=== PATIENT | female | born 1970 | race Caucasian/White ===

== ENCOUNTER 2016-08-19 17:37 | Emergency (ER) | payer OTHER ==
--- NOTE | 2016-08-19 18:46 | ED CLINICAL REPORT ---
Clinical Report - Physicians/Mid Levels [facility] [address] [place] [address] 08/19/2016 17:39 Patient: SOLANGE JUNIOR Arrived- By private vehicle. Historian- patient. HISTORY OF PRESENT ILLNESS Chief Complaint: PELVIC PAIN. Still present. The symptoms are described as mild. No vaginal pain, low back pain, vaginal discharge, vaginal itching or pain with urination. No urinary frequency. (Patient reports IUD inserted in September 2015, since then she has had some discharge, mild vaginal bleeding and cramping off and on. She was seen recently by her NATURAL RESOURCES INSTRUCTOR physician, as well as urgent care clinic, was referred to here for ultrasound. Patient reports pain worsening over the last 2-3 days. NO urgency/ freq/ dysuria.). REVIEW OF SYSTEMS No vomiting, diarrhea, headache, fever or cough. No difficulty breathing. All systems otherwise negative, except as recorded above. PAST HISTORY Problems: Lupus. Asthma. Additional Surgeries: Ablation. . Medications: Hydroxychloroquine Sulfate Oral. Mirena Intrauterine. Qvar Inhalation. Zyrtec. Allergies: Compazine. Macrobid. Sulfa Antibiotics. SOCIAL HISTORY Former smoker. No alcohol use or drug use. PHYSICAL EXAM Appearance: Alert. No acute distress. Neck: Neck supple. CVS: Heart sounds normal. Respiratory: No respiratory distress. Abdomen: Soft and nontender. No mass. No abdominal tenderness. : External inspection normal. Speculum exam normal. A scant amount of vaginal discharge present (brown). Bimanual exam normal. Neuro: Oriented X 3. LABS, X-RAYS, AND EKG Note - Tests: (US : pelvic: IMPRESSION: 1. Retroflexed uterus (normal variant). 2. IUD in satisfactory position. 3. Bilateral simple ovarian cysts. 4. Otherwise negative pelvic ultrasound ( 5. Findings called to Digna Mo PAC. Electronically Final signed by:Nas Overton MD 08/19/2016 6:48:36 PM). PROGRESS AND PROCEDURES Course of Care: Urgent care urine: neg, neg preg. Patient with ID in good position. No signs of torsion. Few small ovarian cyst present. Patient otherwise stable. No distress. Pt inquired about IUD removal, given she has f/u next week, will defer to her NATURAL RESOURCES INSTRUCTOR for such, it is in good position and does not need to be emergently removed. 08/19/2016 17:44 BP: 132/84. HR: 93. RR: 18. O2 saturation: 100%. Temp: 97.7 F. Pain level now: 5/10. Patient is stable. Physical exam findings are improved. Symptoms better. Patient/family counseled. Disposition: Discharged. CLINICAL IMPRESSION Pelvic pain. Multiple simple right and left ovarian cysts. Mild dysfunctional uterine bleeding. INSTRUCTIONS Warnings: Further evaluation is necessary. OTC Medications: Take acetaminophen (Tylenol, Datril, etc.) and ibuprofen (Advil, Nuprin, etc.) according to label instructions. Available over the counter. Follow-up: Follow up with your doctor next week. (Electronically signed by Jen Mo P.A.-C 08/19/2016 19:10)
--- NOTE | 2016-08-19 18:46 | ED CLINICAL REPORT ---
Clinical Report - Physicians/Mid Levels [facility] [address] [place] [address] 08/19/2016 17:39 Patient: SOLANGE JUNIOR Arrived- By private vehicle. Historian- patient. HISTORY OF PRESENT ILLNESS Chief Complaint: PELVIC PAIN. Still present. The symptoms are described as mild. No vaginal pain, low back pain, vaginal discharge, vaginal itching or pain with urination. No urinary frequency. (Patient reports IUD inserted in September 2015, since then she has had some discharge, mild vaginal bleeding and cramping off and on. She was seen recently by her MATERIAL CARRIER physician, as well as urgent care clinic, was referred to here for ultrasound. Patient reports pain worsening over the last 2-3 days. NO urgency/ freq/ dysuria.). REVIEW OF SYSTEMS No vomiting, diarrhea, headache, fever or cough. No difficulty breathing. All systems otherwise negative, except as recorded above. PAST HISTORY Problems: Lupus. Asthma. Additional Surgeries: Ablation. . Medications: Hydroxychloroquine Sulfate Oral. Mirena Intrauterine. Qvar Inhalation. Zyrtec. Allergies: Compazine. Macrobid. Sulfa Antibiotics. SOCIAL HISTORY Former smoker. No alcohol use or drug use. PHYSICAL EXAM Appearance: Alert. No acute distress. Neck: Neck supple. CVS: Heart sounds normal. Respiratory: No respiratory distress. Abdomen: Soft and nontender. No mass. No abdominal tenderness. : External inspection normal. Speculum exam normal. A scant amount of vaginal discharge present (brown). Bimanual exam normal. Neuro: Oriented X 3. LABS, X-RAYS, AND EKG Note - Tests: (US : pelvic: IMPRESSION: 1. Retroflexed uterus (normal variant). 2. IUD in satisfactory position. 3. Bilateral simple ovarian cysts. 4. Otherwise negative pelvic ultrasound ( 5. Findings called to Digna Mo PAC. Electronically Final signed by:Nas Overton MD 08/19/2016 6:48:36 PM). PROGRESS AND PROCEDURES Course of Care: Urgent care urine: neg, neg preg. Patient with ID in good position. No signs of torsion. Few small ovarian cyst present. Patient otherwise stable. No distress. Pt inquired about IUD removal, given she has f/u next week, will defer to her MATERIAL CARRIER for such, it is in good position and does not need to be emergently removed. 08/19/2016 17:44 BP: 132/84. HR: 93. RR: 18. O2 saturation: 100%. Temp: 97.7 F. Pain level now: 5/10. Patient is stable. Physical exam findings are improved. Symptoms better. Patient/family counseled. Disposition: Discharged. CLINICAL IMPRESSION Pelvic pain. Multiple simple right and left ovarian cysts. Mild dysfunctional uterine bleeding. INSTRUCTIONS Warnings: Further evaluation is necessary. OTC Medications: Take acetaminophen (Tylenol, Datril, etc.) and ibuprofen (Advil, Nuprin, etc.) according to label instructions. Available over the counter. Follow-up: Follow up with your doctor next week. (Electronically signed by Jen Mo P.A.-C 08/19/2016 19:10)
--- NOTE | 2016-08-19 18:46 | ED NURSING NOTES ---
Clinical Report - Nurses [facility] [address] [place] [address] 08/19/2016 17:39 Patient: SOLANGE JUNIOR TRIAGE Triage time 17:44. Acuity: LEVEL 3. Chief Complaint: PELVIC PAIN. Alert. No acute distress. MITCHELL COMA SCORE: [place] Coma Scale: 15- eyes open spontaneously (4); best verbal response- oriented x 4 (5); best motor response- obeys commands (6). --17:53 Ivone Murrell R.N. 17:44 08/19/16. BP: 132/84. HR: 93. RR: 18. O2 saturation: 100% on room air. Temp: 97.7 F (oral). Pain level now: 5/10. --17:53 Ivone Murrell R.N. Weight: 47.1 kg stated. Height/Length: 63 inches Per Patient. BMI: 18.4. --17:50 Ivone Murrell R.N. Medications Zyrtec. --17:47 Ivone Murrell R.N. Hydroxychloroquine Sulfate Oral. Mirena Intrauterine. Qvar Inhalation. --17:47 Ivone Murrell R.N. Medication/allergy information source: other. --17:53 Ivone Murrell R.N. Allergies Compazine. Sulfa Antibiotics. --17:48 Ivone Murrell R.N. Macrobid. --17:48 Ivone Murrell R.N. History Arrived by private vehicle. Historian: patient. Unaccompanied. Primary physician (Chon). This started yesterday. Describes the quality as "pain" and ( intermittent). Relates location as in the right lower quadrant. Notes pain level as 5/10 on arrival and 8/10 at maximum. ( IUD placed 11 months ago, spotting daily since IUD placed). PAST MEDICAL HX: Last normal menstrual period- has IUD. SOCIAL HX: Former smoker. No alcohol use or drug use. FALL RISK ASSESSMENT: Fall risk assessment completed. No fall risk identified. FUNCTIONAL ASSESSMENT: Functional assessment: no impairments noted. LEARNING NEEDS ASSESSMENT: The learning needs assessment revealed no barriers. --17:53 Ivone Murrell R.N. PROBLEMS: Lupus. Asthma. --17:49 Ivone Murrell R.N. ADDITIONAL SURGERIES: Ablation. . --17:49 Ivone Murrell R.N. Assessment GENERAL / NEURO / PSYCH: Alert. Oriented X 4. Appears in no acute distress. Patient appears calm and cooperative. RESPIRATORY: Respirations not labored. SKIN: Skin is warm and dry. --17:53 Ivone Murrell R.N. Interventions ID and allergy band on patient. To treatment room. --17:53 Ivone Murrell R.N. PHYSICAL ASSESSMENT 17:57 08/19/16. Ambulatory to room. Patient gowned. GENERAL / NEURO / PSYCH: Alert. Oriented X 4. Appears in no acute distress. RESPIRATORY: Respirations not labored. SKIN: Skin is warm and dry. --17:57 Ivone Murrell R.N. NURSING PROGRESS NOTES 17:58 08/19/16. Patient gowned. Head of bed elevated. Call light placed in reach. Side rails up x 1. Bed placed in lowest position. Brakes of bed on. --17:58 Ivone Murrell R.N. 17:59 US tech at bedside. --17:59 Ivone Murrell R.N. 19:00. Reassessment after procedure. She is calm and resting quietly. Overall patient status is the same- she states feels the same. SKIN: Skin is warm and dry. --19:11 Ivone Murrell R.N. DISPOSITION / DISCHARGE Departure time: 1900. Condition at departure: stable. No learning barriers present. Discharge instructions provided and reviewed with the patient. Patient verbalized understanding. Written instructions provided in Wolof. The patient was discharged home and accompanied by spouse. She left the Emergency Department ambulatory and via private vehicle. FALL RISK ASSESSMENT: Fall risk assessment completed. No fall risk identified. --19:13 Ivone Murrell R.N. 19:00 08/19/16. BP: 128/84. HR: 89. RR: 18. O2 saturation: 100%. Pain level now: 07/28. --19:13 Ivone Murrell R.N. Locked/Released at 08/19/2016 19:14 by Ivone Murrell R.N.
--- NOTE | 2016-08-19 18:46 | ED ORDER SUMMARY ---
..... Patient: SOLANGE JUNIOR OrderSheet [facility] VisitID: [id number] [place] [address] 46y, F Registration Date/Time: 08/19/2016 ORDER SHEET Weight: 47.1 kg (stated) Allergies: Compazine, Sulfa Antibiotics, Macrobid GENERAL ORDERS: US Pelvic Complete w Transvag Urgent (17:44 08/19/2016 EKoroleva P.A.-C) (Ack 17:46 SUZANoerchung) (19:14 Naeem Taveras.Obed) UA-Culture if indicated Urgent (17:44 08/19/2016 EKoroleva P.A.-C) (Ack 17:46 KHoerchung) (Cancelled: Other18:45 EKoroleva P.A.-C) Urine Urgent (17:44 08/19/2016 EKoroleva P.A.-C) (Ack 17:46 KHoerner) (Cancelled: Other18:45 EKoroleva P.A.-C) MEDICATION ORDERS: IV FLUIDS: ORDER SHEET NOTES: [Electronically signed by Jen MoAHenri-Colby (19:10 08/19/2016)] [Electronically signed by Ivone Murrell R.N. (19:14 08/19/2016)] [Electronically locked/signed by Ivone Murrell R.N. (19:14 08/19/2016)]
--- NOTE | 2016-08-19 18:46 | ED ORDER SUMMARY ---
..... Patient: SOLANGE JUNIOR OrderSheet [facility] VisitID: [id number] [place] [address] 46y, F Registration Date/Time: 08/19/2016 ORDER SHEET Weight: 47.1 kg (stated) Allergies: Compazine, Sulfa Antibiotics, Macrobid GENERAL ORDERS: US Pelvic Complete w Transvag Urgent (17:44 08/19/2016 EKoroleva P.A.-C) (Ack 17:46 SUZANoerchung) (19:14 Naeem Taveras.Obed) UA-Culture if indicated Urgent (17:44 08/19/2016 EKoroleva P.A.-C) (Ack 17:46 KHoerchung) (Cancelled: Other18:45 EKoroleva P.A.-C) Urine Urgent (17:44 08/19/2016 EKoroleva P.A.-C) (Ack 17:46 KHoerner) (Cancelled: Other18:45 EKoroleva P.A.-C) MEDICATION ORDERS: IV FLUIDS: ORDER SHEET NOTES: [Electronically signed by Jen MoAHenri-Colby (19:10 08/19/2016)] [Electronically signed by Ivone Murrell R.N. (19:14 08/19/2016)] [Electronically locked/signed by Ivone Murrell R.N. (19:14 08/19/2016)]
--- NOTE | 2016-08-19 18:53 | DIAGNOSTIC IMAGING REPORT ---
PROCEDURE: US COMPLETE PELVIC W/TRANSVAG INDICATION: Pelvic pain. History of IUD. TECHNIQUE: Transabdominal and endovaginal costa scale and color Doppler sonographic images of the female pelvis were obtained. The patient reportedly elected to terminate study due to discomfort. COMPARISON: None. FINDINGS: TRANSABDOMINAL SCANS: Uterus is of normal size (6.1 x 4.8 x 5.2 cm), although retroflexed (normal variant). TRANSVAGINAL SCANS: There is a curvilinear IUD within the endometrial canal (satisfactory position). Endometrial thickness is normal (8 mm). There is a small 1.8 cm right posterior subserosal fibroid. Right ovary is of normal size (4.0 cm) with a 2.5 cm simple cyst. Normal vascularity. Left ovary is of normal size (3.8 cm) with small follicular cysts (largest 1.5 cm). Normal blood flow. There is no evidence of free fluid. IMPRESSION: 1. Retroflexed uterus (normal variant). 2. IUD in satisfactory position. 3. Bilateral simple ovarian cysts. 4. Otherwise negative pelvic ultrasound ( 5. Findings called to Digna Mo, PAC.
--- NOTE | 2016-08-19 19:14 | ED MAR SUMMARY ---
..... Medication Administration Record [facility] [address] [place], [place] [id number] Patient: SOLANGE JUNIOR Visit ID: [id number] 46y, F Weight: 47.1 kg Height/Length: 63 in BMI: 18.4 ALLERGIES: Sulfa Antibiotics, Compazine, Macrobid
--- NOTE | 2016-08-19 19:14 | ED MAR SUMMARY ---
..... Medication Administration Record [facility] [address] [place], [place] [id number] Patient: SOLANGE JUNIOR Visit ID: [id number] 46y, F Weight: 47.1 kg Height/Length: 63 in BMI: 18.4 ALLERGIES: Sulfa Antibiotics, Compazine, Macrobid
--- NOTE | 2016-08-19 19:14 | ED DISCHARGE INSTRUCTIONS ---
Patient: SOLANGE JUNIOR General Instructions [facility] VisitID: [id number] [place] [address] 46y, F Registration Date/Time: 08/19/2016 Pelvic pain. Multiple simple right and left ovarian cysts. Mild dysfunctional uterine bleeding. INSTRUCTIONS Warnings: Further evaluation is necessary. OTC Medications: Take acetaminophen (Tylenol, Datril, etc.) and ibuprofen (Advil, Nuprin, etc.) according to label instructions. Available over the counter. Follow-up: Follow up with your doctor next week. ADDITIONAL INFORMATION Pelvic Pain, Uncertain Cause Based on your visit today, the exact cause of your pelvic pain is not certain. But your condition does not appear to be serious at this time. However, the signs of a serious problem may take more time to appear. Therefore, it is important for you to watch for any new symptoms or worsening of your condition. Home Care: Rest until you are feeling better. Avoid sexual intercourse until your pain goes away. You may use acetaminophen (Tylenol) or ibuprofen (Motrin, Advil) to control pain, unless another medicine was prescribed. [NOTE: If you have chronic liver or kidney disease or ever had a stomach ulcer or GI bleeding, talk with your doctor before using these medicines.] Follow Up with your doctor as advised. If a culture test was taken, call in two days for the results. If the culture is positive, you will be given more advice at that time. Otherwise, follow-up with your doctor or this facility as instructed. Get Prompt Medical Attention if any of the following occur: Fever of 100.4F (38C) or higher, or as directed by your healthcare provider Vaginal discharge Worsening pain Weakness, dizziness or fainting Unexpected vaginal bleeding or passage of costa or white tissue from the vagina Pain that moves to the right lower abdomen Ovarian Cyst The ovary is a small organ located on each side of the uterus. During each menstrual cycle a tiny egg sac forms in the ovary. If the egg is released but does not occur, this sac usually dissolves. Sometimes, the sac may fill with fluid. It then enlarges into a painful cyst. Usually the cyst will rupture or shrink on its own. In either case, the pain gradually goes away over the next 1-3 days. If the cyst does not shrink or rupture, it may cause continued pain. Home Care: Rest in bed and avoid heavy exertion until you are feeling better. Heat to the lower abdomen usually helps (heating pad or hot packs -- a small towel soaked in hot water). You may use acetaminophen (Tylenol) or ibuprofen (Motrin, Advil) to control pain, unless another pain medicine was prescribed. [NOTE: If you have chronic liver or kidney disease or ever had a stomach ulcer or GI bleeding, talk with your doctor before using these medicines.] Follow Up: See your doctor within the next 2-3 days if your pain doesnt improve. Otherwise, follow up with your doctor after your next period or as directed by our staff. Get Prompt Medical Attention if any of the following occur: Pain worsens or fails to respond to the above measures Fever of 100.4F (38C) or higher, or as directed by your healthcare provider Heavy vaginal bleeding (soaking one pad an hour for three hours) You feel weak or dizzy Fainting Passage of a pink or costa tissue with menstrual bleeding Irregular Vaginal Bleeding This is a condition in which bleeding occurs at unexpected times of the month. The bleeding may be heavier or regional geodetic advisor than usual. Heavy bleeding may lead to anemia. If severe enough, anemia may cause you to look pale and feel weak or fatigued. You might have shortness of breath even with little exertion. The female hormones produced in your body every month may be out of balance. This imbalance leads to bleeding. Causes could include an ovarian cyst, emotional stress, pelvic infection. Failure to ovulate during your last cycle may also cause this problem. Home Care: If bleeding is heavy, rest and avoid heavy exertion. You may use acetaminophen (Tylenol) or ibuprofen (Motrin, Advil) to control pain, unless another pain medicine was prescribed. [NOTE: If you have chronic liver or kidney disease or ever had a stomach ulcer or GI bleeding, talk with your doctor before using these medicines.] Iron supplements may be prescribed for anemia. It takes about 4-6 weeks for the iron to correct the anemia. Take the medicine as directed. See your doctor for a repeat blood test after you finish the iron treatment. If hormones were prescribed to control your bleeding, take them exactly as directed. If you were prescribed a medicine called Provera (medroxyprogesterone), the bleeding should stop while you are taking it. Another period will start a few days after you finish the medicine. Follow Up with your doctor, or as advised, within the next 1-2 days if heavy bleeding continues. Otherwise, follow up within the next 1-2 weeks. Get Prompt Medical Attention if any of the following occur: Bleeding becomes heavy (soaking one pad an hour for three hours) Fever of 100.4F (38C) or higher, or as directed by your healthcare provider Increase in abdominal pain Weakness, dizziness or fainting You have been given the following additional information: Pelvic Pain, Unknown Cause Ovarian Cyst Dysfunctional Uterine Bleeding (Electronically signed by Jen Mo P.A.-C 08/19/2016 19:10)
--- NOTE | 2016-08-19 19:14 | ED MED RECONCILIATION SUMMARY ---
Patient: SOLANGE JUNIOR Medication Reconciliation Report [facility] VisitID: [id number] [address] [place] [address] 46y, F Registration Date/Time: 08/19/2016 Weight: 47.1 kg Height/Length: 63 in. BMI: 18.4 ALLERGIES: Compazine, Macrobid, Sulfa Antibiotics The patient's Home Medications are listed below: THE FOLLOWING MEDICATIONS NEED TO BE RECONCILED: Hydroxychloroquine Sulfate Oral Mirena Intrauterine Qvar Inhalation Zyrtec The source(s) of the original Home Medication information: other The following Medications were given to the patient in the Emergency Department: None. The following Medications were prescribed to the patient: Take acetaminophen (Tylenol, Datril, etc.) and ibuprofen (Advil, Nuprin, etc.) according to label instructions. Available over the counter. -- Jen Mo P.A.-C
--- NOTE | 2016-08-19 19:14 | ED MED RECONCILIATION SUMMARY ---
Patient: SOLANGE JUNIOR Medication Reconciliation Report [facility] VisitID: [id number] [address] [place] [address] 46y, F Registration Date/Time: 08/19/2016 Weight: 47.1 kg Height/Length: 63 in. BMI: 18.4 ALLERGIES: Compazine, Macrobid, Sulfa Antibiotics The patient's Home Medications are listed below: THE FOLLOWING MEDICATIONS NEED TO BE RECONCILED: Hydroxychloroquine Sulfate Oral Mirena Intrauterine Qvar Inhalation Zyrtec The source(s) of the original Home Medication information: other The following Medications were given to the patient in the Emergency Department: None. The following Medications were prescribed to the patient: Take acetaminophen (Tylenol, Datril, etc.) and ibuprofen (Advil, Nuprin, etc.) according to label instructions. Available over the counter. -- Jen Mo P.A.-C
== END 2016-08-19 19:00 | disposition home or self-care (01) ==
LOC: ED SRH 17:37
DX: R10.2 Pelvic and perineal pain (principal); N93.8 Other specified abnormal uterine and vaginal bleeding; N83.292 Other ovarian cyst, left side; N83.291 Other ovarian cyst, right side; Z97.5 Presence of (intrauterine) contraceptive device; M32.9 Systemic lupus erythematosus, unspecified; Z79.899 Other long term (current) drug therapy; Z79.51 Long term (current) use of inhaled steroids; Z88.2 Allergy status to sulfonamides; Z88.8 Allergy status to other drugs, medicaments and biological substances; Z88.1 Allergy status to other antibiotic agents